=== PATIENT | male | born 1975 | race Hispanic/Latino ===

== ENCOUNTER 2024-06-11 13:45 | Outpatient (CLI) | payer BC | END 2024-06-11 13:46 | disposition home or self-care (01) | LOC: CSHULT 13:45 | PROVIDERS: ATTEND Family Medicine | DX: R01.1 Cardiac murmur, unspecified (principal); I10 Essential (primary) hypertension; I34.0 Nonrheumatic mitral (valve) insufficiency; I51.7 Cardiomegaly | CPT/HCPCS: 93306 ==